=== PATIENT | male | born 1930 | race Caucasian/White ===

== ENCOUNTER 2017-08-05 21:18 | Inpatient (IN) | payer MEDICARE, BC ==
[2017-08-05 21:56] LABS: #Lymphocytes 0.3 thou/uL (1.20-3.40); #Monocytes 0.4 thou/uL (0.11-0.59); #Neutrophils 7.9 thou/uL (1.40-6.50); %Eosinophils 0.2 % (0.0-10.0); %Lymphocytes 2.9 % (21.0-51.0); %Monocytes 4.6 % (0.0-10.0); %Neutrophils 92.3 % (42.0-75.0); Hemoglobin 14.2 g/dL (14.0-18.0); Mean Corpuscular HGB CONC 33.9 g/dL (32.0-36.0); Mean Corpuscular Hemoglobin 33.4 pg (27.0-31.0); Mean Corpuscular Volume 98.5 fl (80.0-94.0); Mean Platelet Volume 6.5 fL (7.4-10.4); Platelet Count 161 thou/uL (130-400); RBC Distribution Width 13.1 % (11.5-14.5); Red Blood Cell (RBC) Count 4.26 mill/uL (4.70-6.10); White Blood Cell (WBC) Count 8.6 thou/uL (4.8-10.8)
[2017-08-05] MEDS ORDERED: Piperacillin/Tazobactam 4.5 GM VIAL ONE (22:15)
[2017-08-05 22:16] LABS: ALT (SGPT) 25 U/L (8-55); AST (SGOT) 30 U/L (5-34); Albumin 3.6 g/dL (3.4-4.8); Alkaline Phosphatase 66 U/L (40-150); Anion Gap 12 mmol/L (10-20); BUN (Urea Nitrogen) 19 mg/dL (8.4-25.7); Bilirubin, Total 0.6 mg/dL (0.2-1.2); Calc. Creatinine Clearance 0 mL/min (70-130); Calcium 8.6 mg/dL (7.8-10.44); Carbon Dioxide 27 mmol/L (23-31); Chloride 104 mmol/L (98-107); Estimated GFR-MDRD Greater than 90; Globulin 2.6 g/dL (2.4-3.5); Glucose 121 mg/dL (83-110); Potassium 3.6 mmol/L (3.5-5.1); Protein, Total 6.2 g/dL (5.8-8.1); Sodium 139 mmol/L (136-145)
[2017-08-05] MEDS ORDERED: Acetaminophen 500 MG TAB ONE (22:17)
[2017-08-05 22:24] LABS: Bilirubin Negative (Negative); Blood, Urine Negative (Negative); Clarity CLOUDY (Clear); Glucose, Urine (Dipstick) Negative (Negative); Leukocyte Trace (Negative); Nitrite Negative (Negative); Protein, Urine (Dipstick) Negative (Neg-Trace); Specific Gravity, Urine 1.018 (1.002-1.036); Urobilinogen 0.2 mg/dL (0.2-1.0)
[2017-08-05 22:26] LABS: Bacteria/HPF None Seen HPF (None Seen); Hyaline Casts/LPF 0-3 HYALINE CAST LPF (0-3 Hyaline); Squamous Epithelial None Seen HPF (0-3); WBC/HPF None Seen HPF (0-3)
[2017-08-05] MEDS ORDERED: Vancomycin HCl 1.25 GM in Sodium Chloride 0.9% 250 ML 250 ML IVPB SCH (22:30)
--- NOTE | 2017-08-05 22:55 | RAD ---
FRONTAL VIEW CHEST: CLINICAL HISTORY: Sepsis. COMPARISON: 11/09/2016 FINDINGS: Mild linear density remains at the right lower lung zone, decreased from the 11/09/2016 exam. This m ay relate to residual atelectasis or scar. There is no lobar consolidation otherwise demonstrated. The cardiac silhouette is stable. There is a stable high density nodule of the inferolateral left ch est, which may relate to granulomatous calcification. IMPRESSION: Linear density, right lower lung zone, as discussed above. There is interval improvement of this region when compared to comparison exam from 11/09/2016. POS: [facility]
--- NOTE | 2017-08-05 23:04 | RAD ---
ACUTE ABDOMINAL SERIES WITH FRONTAL VIEW CHEST AND TWO VIEW ABDOMEN: INDICATIONS: Fever. FINDINGS: The imaged lower lung zones reveal no lobar consolidation. No free air is seen beneath the hemidiaph ragms. The bowel gas pattern is nonspecific with scattered air-filled bowel of the abdomen and pelvi s. IMPRESSION: Nonspecific bowel gas pattern. POS: [facility]
--- NOTE | 2017-08-05 23:48 | CT ---
CT HEAD NONCONTRAST: CLINICAL HISTORY: Altered mental status. FINDINGS: There is age-related parenchymal atrophy with compensatory dilatation of the ventricular system. Mod erate chronic microvascular ischemic disease is present. No intracranial hemorrhage, mass effect, or midline shift. Minimal left mastoid fluid is present, and there is mild paranasal sinus mucosal thi ckening. IMPRESSION: No acute intracranial abnormalities. POS: [facility]
[2017-08-06] MEDS ORDERED: cefTRIAXone\\ROCEPHIN 2 GM VIAL ONE (01:03)
[2017-08-06] MEDS ORDERED: DOPamine 400 MG/D5W 250 ML 250 ML ONE (01:07)
[2017-08-06 01:39] LABS: Lactic Acid 2.2 mmol/L (0.5-2.2)
[2017-08-06] MEDS ORDERED: Ondansetron ODT 4 MG TAB ONE (01:59)
[2017-08-06] MEDS ORDERED: Ketorolac Tromethamine 30 MG/ML VIAL IVP PRN (03:23)
[2017-08-06] MEDS ORDERED: Ondansetron HCl/PF 4 MG/2 ML Vial IVP PRN ×2 (03:23→03:24)
[2017-08-06] MEDS ORDERED: Acetaminophen 650 MG Suppository PR PRN (03:23)
[2017-08-06] MEDS ORDERED: Ondansetron ODT 4 MG TAB SL PRN (03:24)
[2017-08-06] MEDS ORDERED: Acetaminophen 325 MG TAB PO PRN (03:24)
[2017-08-06] MEDS ORDERED: DOPamine 400 MG/D5W 250 ML 250 ML IVPB SCH ×2 (03:30)
[2017-08-06] MEDS ORDERED: Sodium Chloride 0.9% 1,000 ML IV SCH (03:30)
[2017-08-06 03:50] LABS: #Basophils 0.1 thou/uL (0.0-0.2); #Lymphocytes 0.2 thou/uL (1.20-3.40); #Monocytes 0.3 thou/uL (0.11-0.59); #Neutrophils 5.9 thou/uL (1.40-6.50); %Basophils 1.3 % (0.0-1.0); %Eosinophils 0.2 % (0.0-10.0); %Lymphocytes 2.7 % (21.0-51.0); %Monocytes 4.7 % (0.0-10.0); %Neutrophils 91.2 % (42.0-75.0); Hemoglobin 13.2 g/dL (14.0-18.0); Mean Corpuscular HGB CONC 33.6 g/dL (32.0-36.0); Mean Corpuscular Hemoglobin 33.3 pg (27.0-31.0); Mean Platelet Volume 6.1 fL (7.4-10.4); Platelet Count 141 thou/uL (130-400); Red Blood Cell (RBC) Count 3.97 mill/uL (4.70-6.10); White Blood Cell (WBC) Count 6.4 thou/uL (4.8-10.8)
[2017-08-06 03:57] VITALS: BMI 29.2
[2017-08-06 04:10] LABS: Anion Gap 9 mmol/L (10-20); BUN (Urea Nitrogen) 18 mg/dL (8.4-25.7); Calc. Creatinine Clearance 84 mL/min (70-130); Calcium 7.9 mg/dL (7.8-10.44); Carbon Dioxide 25 mmol/L (23-31); Chloride 108 mmol/L (98-107); Estimated GFR-MDRD Greater than 90; Glucose 122 mg/dL (83-110); Potassium 3.4 mmol/L (3.5-5.1); Sodium 139 mmol/L (136-145)
[2017-08-06] MEDS: Sodium Chloride 0.9% 1,000 ML IV SCH ×2 (04:49→18:26)
[2017-08-06] MEDS: metroNIDAZOLE 500 MG in Premix Bag 1 BAG IVPB SCH ×3 (04:50→20:18)
--- NOTE | 2017-08-06 06:12 | HP ---
REASON FOR ADMISSION: Sepsis, possible small-bowel obstruction. HISTORY OF PRESENT ILLNESS: The patient was brought to emergency room by his daughter as he is more lethargic. Around 10:00 a.m. yesterday, the patient was feeling cold and had developed chills. Around 5:00 p.m., he became more weak and lethargic. Around 7:30 to 8:00 p.m., patient was not himself. He was feeling hot and very lethargic and the daughter who works in the NICU here, who is also a nurse brought him to the emergency room. On arrival here, patient had a temperature of 102 in the ER. He was found to have had abdominal distention. The patient has felt nauseous and had one large episode of vomiting in the emergency room. The patient also was noticed to have progressive enlargement of his abdomen in the ER. He has had CT of the abdomen and pelvis done in the ER, the official results are pending at present. PAST MEDICAL AND SURGICAL HISTORY: History of Parkinson's disease, rheumatoid arthritis, benign prostatic hypertrophy, cholecystectomy and hernia repair. CURRENT MEDICATIONS: Lasix was increased from 40 to 80 mg for his lower extremity edema a week back. Avodart 0.5 mg p.o. daily, methotrexate 7.5 mg p.o. once weekly, Flomax extended release 0.4 mg daily, carbidopa/levodopa 1 tab 3 times daily that is 10/100 mg, Ultram p.r.n. for pain. ALLERGIES: Allergic to MORPHINE. PERSONAL HISTORY: Does not abuse alcohol or drugs. No history of smoking. FAMILY HISTORY: Mother in her 60s from unknown cause. Father in his 50s and was alcoholic and had CVA. CODE STATUS: FULL. This was discussed with patient's daughter, Ms. Sánchez at bedside. REVIEW OF SYSTEMS: Cannot be obtained as patient is not oriented at present. PHYSICAL EXAMINATION: GENERAL: The patient is an 86-year-old male who is currently not in any acute distress. VITAL SIGNS: Blood pressure on arrival was 107/54 later systolic blood pressures dropped down to 80s and was started on dopamine in the ER, pulse 106 per minute, respiratory rate 20 per minute, temperature 102 degrees rectal in the ER, saturating 98% on room air. NECK: Supple, no elevated JVD. HEENT: Eyes: Extraocular muscles intact. Pupils reacting to light. Oral cavity: Mucous membranes are dry. No exudates or congestion. CARDIOVASCULAR SYSTEM: S1, S2 heard. Regular rhythm. RESPIRATORY SYSTEM: Air entry 1+ bilateral. Scattered rhonchi plus bilateral. ABDOMEN: Mildly distended. No tenderness, rigidity or guarding. Bowel sounds are heard. EXTREMITIES: Mild peripheral edema, no calf tenderness. VASCULAR SYSTEM: Peripheral pulses 1+ bilateral, no ischemic ulcerations or gangrene. CENTRAL NERVOUS SYSTEM: No gross focal deficits noted. The patient is lethargic, but responds to simple questions. PSYCHIATRIC SYSTEM: Cannot be accurately assessed, but no obvious hallucinations or delusions at present. LABORATORY AND X-RAY FINDINGS: White count of 6.4, H and H 14 and 41, platelet count 161, MCV 98 with 92% neutrophils. Electrolytes are stable. BUN 19, creatinine 0.7, glucose 121. Liver enzymes are within normal limits. Albumin is 3.6. UA shows trace leukoesterase, with no wbc's or bacteria seen. Chest x- ray done shows mild linear density remains the right lower lung zone when compared to prior x-ray done in 11/2016. Acute abdominal series X-ray done shows nonspecific bowel gas pattern. CT brain shows no acute intracranial abnormalities. EKG done shows sinus rhythm at 107 beats per minute. There are nonspecific ST-T wave changes. CLINICAL IMPRESSION AND PLAN: The patient will be admitted to telemetry for sepsis, possible small-bowel obstruction and we will await the CT of the abdomen and pelvis official results. Blood and urine cultures have been obtained in the ER. The patient will be placed on cefepime and Flagyl for now. We will keep him n.p.o. until the CAT scan results are back. He will be gently hydrated with normal saline at 70 mL per hour. He has received 2.5 liters of IV fluids in the ER and we will continue his dopamine to keep map of 60. We will continue his Avodart and Flomax as before. Code status was discussed with patient's power of regulatory attorney, Ms. Sánchez, who is here at bedside , who is also a nurse here in the hospital. He is a FULL CODE for now. We will consult Dr. Cary in view of abdominal distention and nonspecific bowel gas pattern on the KUB x-ray obtained here. MARTHA
[2017-08-06] MEDS: Cefepime 2 GM in Sodium Chloride 0.9% 100 ML IVPB SCH ×2 (06:17→18:25)
[2017-08-06] MEDS: Dutasteride 0.5 MG CAP PO SCH (08:56)
[2017-08-06] MEDS: Tamsulosin HCl 0.4 MG CAP PO SCH (08:56)
[2017-08-06] MEDS: Enoxaparin Sodium 40 MG/0.4 ML SYRINGE SC SCH ×2 (08:58→14:19)
[2017-08-06] MEDS: Famotidine/PF 20 mg/2ml Vial SLOW IVP SCH ×2 (08:58→20:19)
--- NOTE | 2017-08-06 09:15 | CT ---
PRELIMINARY REPORT/[facility]/EMERGENTY AFTER-HOURS PROCEDURE CT Abdomen and Pelvis With Intravenous Contrast EXAM DATE/TIME: Exam ordered 08/06/2017 2:43 AM CLINICAL HISTORY: 86 years old, male; Pain; Abdominal pain; Generalized; Patient HX: Rinku presented to ed for progressiv nicky worsening AMS onset this morning. Daughter report patient vomited after breakfast and was complai nita of not feeling right. Daughter reports TECHNIQUE: Axial computed tomography images of the abdomen and pelvis with intravenous contrast. Coronal reforma tted images were created and reviewed. COMPARISON: No relevant prior studies available. FINDINGS: Lung bases: Indeterminate 4 mm pulmonary nodule in the base of the right lower lobe. Mild dependent a telectasis. ABDOMEN: Liver: Unremarkable. No mass. Gallbladder and bile ducts: Prior cholecystectomy. No ductal dilation. Pancreas: Unremarkable. No mass. No ductal dilation. Spleen: Unremarkable. No splenomegaly. Adrenals: Unremarkable. No mass. Kidneys and ureters: Unremarkable. No solid mass. No hydronephrosis. Stomach and bowel: Colonic diverticulosis. No diverticulitis. No bowel wall thickening or intestinal obstruction. Stomach is moderately distended with fluid. PELVIS: Appendix: Normal appendix. Bladder: Urinary bladder trabeculations. No wall thickening. Reproductive: Unremarkable as visualized. ABDOMEN and PELVIS: Intraperitoneal space: Unremarkable. No free air. No significant fluid collection. Bones/joints: No acute fracture. No dislocation. Soft tissues: Bilateral fat containing inguinal hernias. Vasculature: Unremarkable. No abdominal aortic aneurysm. Lymph nodes: Unremarkable. No enlarged lymph nodes. IMPRESSION: No acute findings. Thank you for allowing us to participate in the care of your patient. Dictated and Authenticated by: Pedro Luis Mckeon MD 08/06/2017 3:06 AM Central Time ([place] & [place]) FINAL REPORT CT ABDOMEN AND PELVIS WITH CONTRAST: Date: 08/06/17 Multiple axial tomograms obtained through abdomen and pelvis with IV enhancement. FINDINGS: Lung bases show no focal infiltrate. Liver, spleen, and pancreas are unremarkable. The stomach is dis tended and filled with ingested material. Adrenal glands unremarkable. Kidneys unremarkable. Urinary bladder is mildly distended and there are numerous bladder diverticula identified, the largest arising from the right bladder wall measuring 3. 7 cm. Prostate is not significantly enlarged. Bowel loops unremarkable. Aorta normal caliber. No mass, adenopathy, or free fluid identified. I am in agreement with the preliminary report issued by [facility]. POS: [facility]
--- NOTE | 2017-08-06 09:42 | PDOC.PN ---
- Subjective Encounter Start Date: 08/06/17 Encounter Start Time: 09:54 Currently denies abd. pain or nausea. Nausea is intermittent and worse with positioning that puts pressure on the abdomen. He reports that he has been having fairly regular BM's. Last was Saturday. No ill contacts. No travel and no change in diet. His daughter (a nurse) is at the bedside and she believes that his abdominal distention is more than it was in the ED. She reports that he did not actually have much emesis volume throughout this episode. - Objective Resuscitation Status: Resuscitation Status FULL:Full Resuscitation Vital Signs & Weight: Vital Signs (12 hours) Temp Pulse Resp BP Pulse Ox 08/06/17 04:30 98.4 F 82 18 115/59 L 98 08/06/17 03:23 97.9 F 96 18 99 08/06/17 03:05 97.9 F 96 18 128/61 100 Weight Weight 186 lb 4.8 oz I&O: 08/05/17 08/06/17 08/07/17 06:59 06:59 06:59 Intake Total 2800 Output Total 300 Balance 2500 Result Diagrams: 08/06/17 03:42 08/06/17 03:42 Phys Exam - Physical Examination Constitutional: NAD Respiratory: no wheezing, no rales, no rhonchi, clear to auscultation bilateral Cardiovascular: RRR, no significant murmur Gastrointestinal: non-tender Distended, hypertympanic. Normal BS. Musculoskeletal: no edema Pulses present, but diminshed. Neurological: non-focal Low frequency tremor of the mandible. Psychiatric: normal affect Dx/Plan (1) Abdominal distension Code(s): R14.0 - ABDOMINAL DISTENSION (GASEOUS) Status: Acute (2) Sepsis Code(s): A41.9 - SEPSIS, UNSPECIFIED ORGANISM Status: Acute (3) Altered mental status Code(s): R41.82 - ALTERED MENTAL STATUS, UNSPECIFIED Status: Acute (4) Rheumatoid arthritis Code(s): M06.9 - RHEUMATOID ARTHRITIS, UNSPECIFIED Status: Acute (5) Parkinson disease Code(s): G20 - PARKINSON'S DISEASE Status: Chronic Comment: on carbidopa/ levodopa (6) Hypokalemia Code(s): E87.6 - HYPOKALEMIA Status: Acute - Plan * Mental status is at baseline. Initial altered status secondary to acute illness. * Abdominal CT result still pending. Definitely reveals bowel distention and air-fluid levels. * Surgery Consult pending. * Continue with Cefepime and Flagyl given his one episode of fever and hypotension. * Hypotension is improved. Dopamine off for three hours. * Lack of abdominal pain and nausea presently, so defer NGT until seen by surg.
--- NOTE | 2017-08-06 10:02 | ULT ---
ULTRASOUND WITH DOPPLER DUPLEX VENOUS LOWER EXTREMITIES BILATERAL: HISTORY: 86-year-old male with bilateral lower extremity edema. TECHNIQUE: Color flow Doppler, spectral waveform analysis of pulsed Doppler, and mitchell-scale imaging with janeth daniel and augmentation, were used to evaluate the bilateral common femoral, femoral, popliteal, solar sales advisor ior tibial, and superficial femoral, veins; and the proximal portions of the profunda femoral and gre ater saphenous, veins. FINDINGS: There is normal compressibility, demonstration of blood flow by color Doppler and pulsed Doppler, and response to augmentation, in all interrogated veins. IMPRESSION: Negative. No deep vein thrombosis in the bilateral lower extremities. jn[] POS: [facility]
[2017-08-06] MEDS ORDERED: ISOVUE-370 76%-LOCM 1 ML ONE (10:58)
[2017-08-06] MEDS ORDERED: MD-Gastroview 120 ML BOT ONE (11:06)
--- NOTE | 2017-08-06 16:00 | CON ---
DATE OF CONSULTATION: 08/06/2017 REQUESTING PHYSICIAN: Kavita Gonzáles M.D. HISTORY OF PRESENT ILLNESS: This is an 86-year-old man who presented to emergency departme nt brought in by daughter who reported patient with progressive lethargy. The patient reported feeli ng some chills. He has had no bowel movement over the last 24 hours. Temperature upon arrival was 1 02 degrees Fahrenheit in the emergency department. The patient has had one bout of large volume emes is prior to arrival. CT scan of the abdomen and pelvis was obtained and I was asked to evaluate the patient for possible partial bowel obstruction. At the time of my evaluation, patient is awake and a lert, though he reports some fatigue. He denies any significant abdominal pain. He had passed some flatus hours before my arrival. PAST MEDICAL HISTORY: Significant for Parkinson's disease, benign prostatic hypertrophy, and rheumat oid arthritis. SURGICAL HISTORY: Pertinent for cholecystectomy and inguinal herniorrhaphy. I reviewed prehospital medications. ALLERGIES: MORPHINE. FAMILY HISTORY: Noncontributory for this patient's age. SOCIAL HISTORY: The patient denies any cigarette smoking, ethanol or illicit drug abuse. REVIEW OF SYSTEMS: Essentially unremarkable except for as stated in past medical history and chief c omplaint. PHYSICAL EXAMINATION: GENERAL: This reveals an 86-year-old man who is coherent and interactive and appears stated age. NEUROLOGIC: The patient is alert and oriented to person, time, and place. VITAL SIGNS: This morning includes blood pressure 129/60, pulse 90, respiratory rate 24, temperature 98.6 degrees Fahrenheit, and oxygen saturation is 98% on 3 liters by nasal cannula oxygen. HEENT: Reveals normocephalic and atraumatic. Pupils equal, round, and reactive to light and accommo dation. The patient has no jugular venous distention noted. HEART: Reveals regular rate and rhythm. No murmurs or gallops auscultated. LUNGS: Clear to auscultation bilaterally. Breathing regular and unlabored. ABDOMEN: Soft and moderately distended, but nontender to palpation. Liver and spleen nonpalpable be low costal margin. EXTREMITIES: Reveals 2+ radial and pedal pulses bilaterally. No ankle edema present. NEUROLOGICAL: Reveals no focal deficits present. LABORATORY DATA AND IMAGING DATA: Laboratory findings today includes CBC with 6,400 white blood cell s, hemoglobin and hematocrit 13.2 and 39.3 respectively, platelet count is 141,000. Metabolic profil e: Sodium 139, potassium is 3.4, chloride is 108, bicarbonate 25, BUN is 18, creatinine 0.73, and gl ucose 122. I have personally reviewed the CT scan of the abdomen and pelvis which revealed multiple mildly distended loops of small bowel with no air fluid levels. There is air in the colon and rectum . An enlarged urinary bladder is noted distended with urine. No pneumoperitoneum, pneumatosis intes tinalis or free fluid is noted. IMPRESSION: 1. Possible gastroenteritis versus partial small-bowel obstruction. 2. Acute hypokalemia. 3. Likely chronic urinary retention secondary to benign prostatic hypertrophy. PLAN: 1. Obtain small bowel follow through while patient is on bowel rest. 2. Correct abnormal electrolytes. 3. Obtain postvoid urinary bladder scan to determine if any urinary retention. Above findings and plan have been discussed with the patient and his daughter at bedside. No surgica l intervention is warranted at this time. Thank you again Dr. Gonzáles, for allowing me the opportunity to participate in the [facility].
--- NOTE | 2017-08-06 16:15 | RAD ---
SMALL BOWEL EXAMINATION: Gastrografin small bowel stud was performed. History: Abdominal pain. Assess for small bowel obstruction. FINDINGS: Project Landscape Architect film shows nongaseous distention of the stomach. There is nongaseous distention of the colon an d there is scattered small bowel gas without evidence of small bowel dilatation. Contrast in the blad pedro pablo from recent CT procedure. Gastrografin was infused via an NG tube and sequential images were obtained. A 1 hour 45 minute exam shows contrast in the stomach with no contrast in the small bowel. Contrast i s pooled within the gastric fundus and cardia region and does not pass through the stomach on this st udy. Patient changed positions and on the 2 hour 30 minute film, contrast is seen in the jejunum and mid i leum showing nonspecific distention without evidence of dilatation. On the 3 hour 30 minute film there is contrast seen throughout the small bowel and colon with contras t opacifying the left colon and rectum. IMPRESSION: 1. There is normal small bowel transit once contrast emptied from the stomach. There is no evidence o f small bowel obstruction. POS: [facility]
[2017-08-06] MEDS: Acetaminophen 325 MG TAB PO PRN (18:27)
[2017-08-07] MEDS: metroNIDAZOLE 500 MG in Premix Bag 1 BAG IVPB SCH ×2 (04:08→12:30)
[2017-08-07] MEDS: Cefepime 2 GM in Sodium Chloride 0.9% 100 ML IVPB SCH (05:07)
[2017-08-07 08:02] LABS: #Monocytes 0.6 thou/uL (0.11-0.59); #Neutrophils 4.5 thou/uL (1.40-6.50); %Basophils 0.1 % (0.0-1.0); %Eosinophils 0.3 % (0.0-10.0); %Lymphocytes 15.9 % (21.0-51.0); %Monocytes 9.7 % (0.0-10.0); Mean Corpuscular HGB CONC 32.8 g/dL (32.0-36.0); Mean Corpuscular Hemoglobin 33.1 pg (27.0-31.0); Mean Platelet Volume 6.8 fL (7.4-10.4); Platelet Count 129 thou/uL (130-400); RBC Distribution Width 13.3 % (11.5-14.5); Red Blood Cell (RBC) Count 3.64 mill/uL (4.70-6.10); White Blood Cell (WBC) Count 6.1 thou/uL (4.8-10.8)
[2017-08-07 08:21] LABS: ALT (SGPT) 28 U/L (8-55); AST (SGOT) 49 U/L (5-34); Albumin 3.1 g/dL (3.4-4.8); Alkaline Phosphatase 51 U/L (40-150); Anion Gap 6 mmol/L (10-20); BUN (Urea Nitrogen) 23 mg/dL (8.4-25.7); Bilirubin, Total 0.3 mg/dL (0.2-1.2); Calc. Creatinine Clearance 84 mL/min (70-130); Calcium 8.1 mg/dL (7.8-10.44); Carbon Dioxide 30 mmol/L (23-31); Chloride 114 mmol/L (98-107); Estimated GFR-MDRD Greater than 90; Globulin 2.2 g/dL (2.4-3.5); Glucose 94 mg/dL (83-110); Potassium 3.2 mmol/L (3.5-5.1); Protein, Total 5.3 g/dL (5.8-8.1); Sodium 147 mmol/L (136-145)
[2017-08-07] MEDS ORDERED: Acetaminophen 500 MG TAB PO PRN (08:39)
[2017-08-07] MEDS ORDERED: Potassium Chloride 40 MEQ in Premix Bag 1 BAG IVPB SCH (09:30)
--- NOTE | 2017-08-07 10:00 | PDOC.PN ---
- Subjective Encounter Start Date: 08/07/17 Encounter Start Time: 09:59 Feeling better. Ambulated well this morning. Had a shower. Tolerating clear liquids with NG out. Still has some abd. distention. Significant flatus, no belching. Requiring some oxygen this morning after activity. - Objective Resuscitation Status: Resuscitation Status FULL:Full Resuscitation Vital Signs & Weight: Vital Signs (12 hours) Temp Pulse Resp BP Pulse Ox 08/07/17 04:00 97.7 F 57 L 15 138/63 93 L 08/06/17 23:53 98.4 F 51 L 12 127/61 95 Weight Weight 186 lb 4.8 oz I&O: 08/06/17 08/07/17 08/08/17 06:59 06:59 06:59 Intake Total 2800 1740 Output Total 300 300 Balance 2500 1440 Result Diagrams: 08/07/17 07:21 08/07/17 07:21 Phys Exam - Physical Examination Constitutional: NAD Respiratory: no wheezing, no rales, no rhonchi, clear to auscultation bilateral Cardiovascular: RRR, no significant murmur Gastrointestinal: soft Distention with hypertympany. Hyperactive BS. Musculoskeletal: no edema Psychiatric: normal affect Dx/Plan (1) Abdominal distension Code(s): R14.0 - ABDOMINAL DISTENSION (GASEOUS) Status: Acute Plan: SB follow through was normal without evidence of obstruction. NG out. Tolerated clears. Diet advancing as tolerated. Continue abx for now. WBC normal. Afeb. (2) Sepsis Code(s): A41.9 - SEPSIS, UNSPECIFIED ORGANISM Status: Resolved (3) Altered mental status Code(s): R41.82 - ALTERED MENTAL STATUS, UNSPECIFIED Status: Resolved (4) Rheumatoid arthritis Code(s): M06.9 - RHEUMATOID ARTHRITIS, UNSPECIFIED Status: Chronic (5) Parkinson disease Code(s): G20 - PARKINSON'S DISEASE Status: Chronic Comment: on carbidopa/ levodopa (6) Hypokalemia Code(s): E87.6 - HYPOKALEMIA Status: Acute Plan: IV repletion. (7) Hypoxia Code(s): R09.02 - HYPOXEMIA Status: Acute Plan: Mild hypoxia. Had similar problem in the past that resolved spontaneously. Lung exam is unremarkable. Will obtain CXR. Concern for possible aspiration. - Plan * Above.
[2017-08-07] MEDS: Dutasteride 0.5 MG CAP PO SCH (10:13)
[2017-08-07] MEDS: Famotidine/PF 20 mg/2ml Vial SLOW IVP SCH ×2 (10:14→21:16)
[2017-08-07] MEDS: Tamsulosin HCl 0.4 MG CAP PO SCH (10:14)
[2017-08-07] MEDS: Enoxaparin Sodium 40 MG/0.4 ML SYRINGE SC SCH (10:14)
[2017-08-07] MEDS: Potassium Chloride 20 MEQ in Premix Bag 1 BAG IVPB SCH ×2 (11:03→14:05)
--- NOTE | 2017-08-07 12:32 | RAD ---
CHEST PA AND LATERAL: Date: 08/07/17 HISTORY: 86-year-old male with history of hypoxia. COMPARISON: 08/05/17. FINDINGS: Monitor leads overlie the chest. Bilateral small pleural effusions have developed since the prior acacia dy. There are stable increased linear and interstitial markings bilaterally. Monitor leads overlie th e chest. Heart size is stable. Atherosclerosis of the aorta. No new confluent pneumonia. IMPRESSION: Development of small bilateral pleural effusions with stable increased markings bilaterally and stabl e heart size. Atherosclerosis of aorta with ectasia. Consider short-term follow-up for clearing or st ability. POS: [facility]
--- NOTE | 2017-08-07 12:57 | PRG ---
DATE OF SERVICE: 08/07/2017 Mr. Mullen is an 86-year-old man who was admitted on 08/05/2017 following a bout of malaise and abdomi nal distention. I was asked to evaluate the patient to exclude small-bowel obstruction present. The patient underwent a small bowel follow through yesterday which showed normal transit time with no ev idence of obstructive process. Overnight, the patient has had multiple loose bowel movements. This morning he denies any abdominal pain. He is more alert at bedside. He is tolerating clear liquid diet. Urinary output has been belkis quate. PHYSICAL EXAMINATION: VITAL SIGNS: This morning includes blood pressure 138/63, pulse 57, respiratory rate is 15, maximum temperature in the last 24 hours is 99 degrees Fahrenheit, oxygen saturation 93% on 2 liters by nasal cannula oxygen. The patient is having productive cough. Sputum culture reveals many gram positive rods, few gram positive cocci in pairs and a few gram negat henrik rods. The patient is currently on antibiotic therapy. HEENT: Reveals normocephalic and atraumatic. Pupils equal, round, reactive to light and accommodati on. HEART: Reveals regular rate and rhythm, no murmurs or gallops auscultated. CHEST: Clear to auscultation bilaterally. Breathing regular and unlabored. ABDOMEN: Soft and obese, but nontender to palpation. Bowel sounds in all 4 quadrants. Normoactive. NEUROLOGIC: Reveals no focal deficits present. LABORATORY DATA: Today includes a CBC with 6100 white blood cells, hemoglobin and hematocrit stable at 12.0 and 36.8 respectively. Platelet count is also stable at 129,000. Metabolic profile: Sodium 147, potassium is 3.2, chloride is 114, BUN is 23, creatinine 0.73, glucose is 94. IMPRESSION: 1. Resolved abdominal distention. No clinical or radiographic evidence of acute small-bowel obstruc tion. 2. Acute bronchitis, currently on antibiotic therapy. There is no acute surgical indication for this patient at this time. General Surgery will sign off at this time and be available to reevaluate the patient on demand. We advised the patient be advanced to a general diet. Medical management as directed by Hospitalist Medicine.
[2017-08-07] MEDS ORDERED: Potassium Chloride 40 MEQ in Sodium Chloride 0.9% 250 ML 250 ML IVPB SCH (15:00)
--- NOTE | 2017-08-07 16:23 | PDOC.EVN ---
Event Note - Event Note Event Note: Patient has had some mild confusion this afternoon. Did not sleep much last night. Daughter reports he has had this in past when in rehab. Noted some facial redness this afternoon. Family concerned about possible reaction to meds. On evaluation, patient is awake and oriented to person and place. He is in no distress. Temp checked and it is normal. He does have some facial erythema at forehead and malar areas. Will discontinue the antibiotics. Wean oxygen as tolerated.
[2017-08-07] MEDS ORDERED: Potassium Chloride 20 MEQ TAB PO SCH (16:30)
[2017-08-07] MEDS: Sodium Chloride 0.9% 1,000 ML IV SCH (22:06)
[2017-08-08 05:13] LABS: #Lymphocytes 1.3 thou/uL (1.20-3.40); #Monocytes 0.8 thou/uL (0.11-0.59); #Neutrophils 6.9 thou/uL (1.40-6.50); %Eosinophils 0.2 % (0.0-10.0); %Lymphocytes 14.8 % (21.0-51.0); %Monocytes 8.7 % (0.0-10.0); %Neutrophils 76.3 % (42.0-75.0); Hemoglobin 13.2 g/dL (14.0-18.0); Mean Corpuscular HGB CONC 33.2 g/dL (32.0-36.0); Mean Corpuscular Hemoglobin 33.1 pg (27.0-31.0); Mean Corpuscular Volume 99.7 fl (80.0-94.0); Mean Platelet Volume 6.7 fL (7.4-10.4); Platelet Count 123 thou/uL (130-400); RBC Distribution Width 13.3 % (11.5-14.5); Red Blood Cell (RBC) Count 3.97 mill/uL (4.70-6.10)
[2017-08-08] MEDS ORDERED: Furosemide 40 MG/4 ML VIAL ONE (05:22)
[2017-08-08] MEDS ORDERED: Furosemide 20 MG/2 ML VIAL SLOW IVP SCH ×2 (05:30→12:00)
[2017-08-08 05:34] LABS: Anion Gap 12 mmol/L (10-20); BUN (Urea Nitrogen) 19 mg/dL (8.4-25.7); Calc. Creatinine Clearance 87 mL/min (70-130); Calcium 8.4 mg/dL (7.8-10.44); Carbon Dioxide 23 mmol/L (23-31); Chloride 112 mmol/L (98-107); Estimated GFR-MDRD Greater than 90; Glucose 98 mg/dL (83-110); Potassium 3.4 mmol/L (3.5-5.1); Sodium 144 mmol/L (136-145)
[2017-08-08] MEDS ORDERED: Haloperidol Lactate 5 MG/ML VIAL ONE (05:51)
[2017-08-08] MEDS ORDERED: Haloperidol Lactate 5 MG/ML VIAL IM SCH (06:00)
[2017-08-08] MEDS ORDERED: Albuterol Sulfate 1.25 MG/3 ML NEB NEB PRN (07:59)
--- NOTE | 2017-08-08 08:07 | PDOC.PN ---
- Subjective Encounter Start Date: 08/08/17 Encounter Start Time: 08:04 Patient had some difficulty overnight. He had some confusion yesterday in the afternoon. That persisted throughout the night. He had some increased respiratory issues this morning (apparently around 5 am). Lasix and Haldol were ordered. He documented sats were actually good on 0.5 lpm NC. Presently he is still slightly confused and nursing reports he has been trying to get out of bed. He reports that his breathing in "better". - Objective Resuscitation Status: Resuscitation Status FULL:Full Resuscitation Vital Signs & Weight: Vital Signs (12 hours) Temp Pulse Resp BP Pulse Ox 08/08/17 03:31 98.8 F 80 20 164/84 H 97 08/07/17 23:54 96.8 F L 68 17 159/70 H 96 08/07/17 21:16 96.1 F L 57 L 16 153/70 H 93 L 08/07/17 21:15 96.8 F L 68 17 96 Weight Weight 182 lb 14.4 oz I&O: 08/07/17 08/08/17 08/09/17 06:59 06:59 06:59 Intake Total 1740 850 Output Total 300 402 Balance 1440 448 Result Diagrams: 08/08/17 04:39 08/08/17 04:39 Phys Exam - Physical Examination Constitutional: NAD Mild generalized wheezing, slightly more in BLL's. Cardiovascular: RRR, no significant murmur Gastrointestinal: soft, non-tender [place] distention, but improved. Musculoskeletal: no edema Confused. Not agitated at the moment. Non-focal. Psychiatric: normal affect Deviation from normal: No erythema of the face. Dx/Plan (1) Abdominal distension Code(s): R14.0 - ABDOMINAL DISTENSION (GASEOUS) Status: Acute Plan: Improved. Had negative SBFT study. NG was discontinued. Doing relatively well from that perspective. Likely viral gastroenteritis. Off abx for this. (2) Sepsis Code(s): A41.9 - SEPSIS, UNSPECIFIED ORGANISM Status: Resolved (3) Altered mental status Code(s): R41.82 - ALTERED MENTAL STATUS, UNSPECIFIED Status: Resolved Plan: Suspect this is benign delirium of an elderly patient who presented ill and who has a history of similar. He did receive a dose of Haldol this morning. Will have a sitter for him. His daughter has been staying with him, but she has been sleep deprived and finally agreed to go home and get some rest. He does not appear otherwise toxic with the exception of the lung exam, but his sats have been reasonable. Will continue to monitor. (4) Hypoxia Code(s): R09.02 - HYPOXEMIA Status: Acute Plan: Has new wheezing this morning. Possible fluid overload. Presented hypotensive and did receive fluids. Lasix was ordered this morning. CXR, nebs, oxygen. Some history of coughing with food, meds. Daughter reports this has been previously evaluated and there were no major findings. Nurses report that he takes meds with apple sauce without difficulty. Will have ST see him. (5) Rheumatoid arthritis Code(s): M06.9 - RHEUMATOID ARTHRITIS, UNSPECIFIED Status: Chronic (6) Parkinson disease Code(s): G20 - PARKINSON'S DISEASE Status: Chronic Comment: on carbidopa/ levodopa (7) Hypokalemia Code(s): E87.6 - HYPOKALEMIA Status: Acute - Plan * As above. * Continue to address respiratory issues and delirium.
[2017-08-08] MEDS: Enoxaparin Sodium 40 MG/0.4 ML SYRINGE SC SCH (09:06)
[2017-08-08] MEDS: cefTRIAXone\\ROCEPHIN 1 GM in Sodium Chloride 0.9% 100 ML IVPB SCH (10:15)
[2017-08-08] MEDS: Dutasteride 0.5 MG CAP PO SCH (10:52)
[2017-08-08] MEDS: Famotidine 20 MG TAB PO SCH ×2 (10:53→22:05)
[2017-08-08] MEDS: Tamsulosin HCl 0.4 MG CAP PO SCH (10:54)
--- NOTE | 2017-08-08 11:23 | RAD ---
AP VIEW CHEST: Date: 08/08/17 HISTORY: Wheezing. FINDINGS/IMPRESSION: Comparison made to previous exam from 08/05/17. AP view of chest demonstrates EKG leads seen over the chest. Pulmonary vascular congestion is seen. A small left-sided pleural effusion is seen. POS: [facility]
--- NOTE | 2017-08-08 11:53 | PDOC.EVN ---
Event Note - Event Note Event Note: CXR shows some pulmonary edema. Will give additional dose of Lasix and oral potassium. He refused po meds this morning. If he will not take potassium, will try IV, but this bothered him yesterday. Otherwise, will follow potassium levels.
[2017-08-08] MEDS ORDERED: Potassium Chloride 20 MEQ TAB PO SCH (12:00)
[2017-08-08] MEDS ORDERED: Potassium Chloride 40 MEQ in Premix Bag 1 BAG IVPB SCH (13:30)
[2017-08-08] MEDS: Potassium Chloride 20 MEQ in Premix Bag 1 BAG IVPB SCH ×2 (14:28→16:46)
[2017-08-08] MEDS: Acetaminophen 325 MG TAB PO PRN (15:39)
[2017-08-08] MEDS: Carbidopa/Levodopa 10-100 mg Tablet PO SCH ×2 (15:40→22:05)
[2017-08-09 05:23] LABS: #Lymphocytes 1.2 thou/uL (1.20-3.40); #Monocytes 0.8 thou/uL (0.11-0.59); #Neutrophils 5.2 thou/uL (1.40-6.50); %Eosinophils 0.1 % (0.0-10.0); %Lymphocytes 16.7 % (21.0-51.0); %Monocytes 11.3 % (0.0-10.0); Hemoglobin 12.1 g/dL (14.0-18.0); Mean Corpuscular HGB CONC 33.1 g/dL (32.0-36.0); Mean Corpuscular Hemoglobin 32.9 pg (27.0-31.0); Mean Corpuscular Volume 99.4 fl (80.0-94.0); Platelet Count 129 thou/uL (130-400); RBC Distribution Width 13.2 % (11.5-14.5); Red Blood Cell (RBC) Count 3.69 mill/uL (4.70-6.10); White Blood Cell (WBC) Count 7.3 thou/uL (4.8-10.8)
[2017-08-09 05:33] LABS: Anion Gap 9 mmol/L (10-20); BUN (Urea Nitrogen) 20 mg/dL (8.4-25.7); Calc. Creatinine Clearance 86 mL/min (70-130); Carbon Dioxide 28 mmol/L (23-31); Chloride 111 mmol/L (98-107); Estimated GFR-MDRD Greater than 90; Glucose 100 mg/dL (83-110); Potassium 3.3 mmol/L (3.5-5.1); Sodium 145 mmol/L (136-145)
[2017-08-09] MEDS: Tamsulosin HCl 0.4 MG CAP PO SCH (09:05)
[2017-08-09] MEDS: Famotidine 20 MG TAB PO SCH ×2 (09:05→20:53)
[2017-08-09] MEDS: Dutasteride 0.5 MG CAP PO SCH (09:05)
[2017-08-09] MEDS: Carbidopa/Levodopa 10-100 mg Tablet PO SCH ×3 (09:05→20:53)
[2017-08-09] MEDS: Enoxaparin Sodium 40 MG/0.4 ML SYRINGE SC SCH (09:08)
[2017-08-09] MEDS: cefTRIAXone\\ROCEPHIN 1 GM in Sodium Chloride 0.9% 100 ML IVPB SCH (09:15)
--- NOTE | 2017-08-09 10:54 | DIS ---
DATE OF ADMISSION: 08/06/2017 DATE OF DISCHARGE: 08/09/2017 DISCHARGE DIAGNOSES: 1. Abdominal distention. 2. Sepsis with hypotension, likely viral. 3. Parkinson's disease. 4. Hypoxia. 5. Confusion. 6. Hypokalemia. 7. Rheumatoid arthritis. HOSPITAL COURSE: This patient is an 86-year-old male who presented with some abdominal distention and discomfort with some associated nausea and vomiting which was not high volume. The patient was initially evaluated in the emergency department where he was found to be hypotensive. He had fluid resuscitation, started on a dopamine drip. He was subsequently admitted to the floor with broad spectrum antibacterial coverage. HOSPITAL COURSE: The patient was able to wean off the dopamine fairly quickly. His blood pressure improved. He was seen by General Surgery, Dr. Cary. He placed an NG tube and ordered and a small bowel follow through. The patient's small bowel study was normal. There was no evidence of obstruction or ileus. Subsequently, the NG tube was discontinued. From that perspective, the patient did well. However, he did have 1 additional episode of fever which he had also reported at home. He also had some borderline compromised respiratory status with O2 saturations that were low requiring some oxygen and at that time he also developed some altered mental status and some agitation. The patient then received a dose of Lasix and Haldol. His chest x-ray did show some pulmonary edema and he did receive a second dose of Lasix. In talking to his daughter this was a similar episode that had happened when he had been n.p.o. in rehab and it appeared that the culprit was the lack of his Sinemet. His Sinemet was immediately restarted and the patient had remarkable improvement in his confusion. He was then able to sleep through the night which he had not done previously. His breathing improved. His lung exam normalized and he was able to eat a regular diet. The patient had no further fevers at that time. I discussed with the patient's daughter and she felt strongly that he would do well at home, especially in light of the fact there was no evidence of other ongoing infection. All blood cultures and urine cultures, and sputum cultures remained negative throughout. Of note, the patient did have a swallowing study performed; however, it was done when he was having some of the altered mental status. At that time, he was having some difficulties; however, after resuming his Sinemet that seemed to dramatically improve. Exam: General: Awake and alert. NAD Heart: RRR, no M Lungs: CTAB, no wheezes Abdomen: Soft, NT,ND Ext: No edema DISPOSITION: The patient will be discharged to home. DISCHARGE MEDICATIONS: He will continue with his usual home medications including ranitidine 150 mg b.i.d., Lasix 40 mg p.o. daily, Avodart 0.5 mg p.o. daily, carbidopa/levodopa 10/100 one p.o. t.i.d., tamsulosin 0.4 mg every day, methotrexate 2.5 mg p.o. q next week. He will be on no new medications. DIET: He is to have a regular diet. ACTIVITY: His activity level is as tolerated. FOLLOWUP: He should follow up with his PCP within 1 week. He can return to the emergency department should he have any problems prior to that time. MARTHA
--- NOTE | 2017-08-09 11:09 | PQF ---
CLINICAL DOCUMENTATION IMPROVEMENT CLARIFICATION FORM: ICD-10 Updated PLEASE DO AN ADDENDUM TO THE PROGRESS NOTE WITH ANY DOCUMENTATION UPDATES OR ADDITIONS AND CARRY THROUGH TO DC SUMMARY. THANK YOU. DATE: 08/09/17 ATTN: Dr. Love Please exercise your independent, professional judgment in responding to the clarification form. Clinical indicators are provided on the bottom of this form for your review Please check appropriate box(s): [ X] Acute pulmonary edema [ ] Chronic pulmonary edema [ ] Other diagnosis [ ] Unable to determine In addition, please specify: Present on Admission (POA): [ ] Yes [ x] No [ ] Unable to determine For continuity of documentation, please document condition throughout progress notes and discharge summary. Thank You. CLINICAL INDICATORS - SIGNS / SYMPTOMS / LABS PN 08/08: HE HAD SOME INCREASED RESPIRATORY ISSUES THIS MORNING. HYPOXIA. ACUTE. HAS NEW WHEEZING THIS MORNING. POSSIBLE FLUID OVERLOAD. EVENT NOTE 08/08; CXR SHOWS SOME PULMONARY EDEMA. WILL GIVE ADDITIONAL DOSE OF LASIX & ORAL POTASSIUM. RISKS: H&P: ADMITTED TO TELEMETRY FOR SEPSIS. HE WILL BE GENTLY HYDRATED WITH NS AT 70 ML/ HR. HE HAS RECEIVED 2.5 LITERS OF IV FLUIDS IN THE ER TREATMENT: CPOE 08/08 @ 0522: LASIX 20 MG SLOW IVP NOW CPOE 08/08 @ 1305: LASIX 20 MG SLOW IVP NOW (This form is maintained as a part of the permanent medical record) 2014 [employer]. All Rights Reserved Rebecca Roldan RN, BSN [email or web address] Office: [phone] [facility]
[2017-08-09] MEDS ORDERED: Potassium Chloride 20 MEQ TAB PO SCH (11:30)
[2017-08-09] MEDS ORDERED: Metoprolol Tartrate 25 MG TAB PO SCH (12:00)
--- NOTE | 2017-08-09 12:03 | PDOC.EVN ---
Event Note - Event Note Event Note: Patient was discharged, but before he left he converted to a-fib with tachycardia. He was asymptomatic and his BP was stable. I spoke with his daughter about the situation. Her mother also has a-fib and she understands it well. She understands the risk associated with it. We all discussed the situation and they do not want to pursue anticoagulation. They would still very much like to go home today. We agreed to give it a little time and see what happened. He has remained unchanged. He remains completely asymptomatic. I have ordered potassium as he is slightly low. That is just now being given. We also agreed to try a low dose oral beta jonathan to improve his rate control. We will give that a little time. If converts to sinus or if he can achieve adequate rate control, we will still consider sending him home as that is likely the best thing for him in light of the confusion he experienced here. Additional time 37 min.
[2017-08-09] MEDS ORDERED: Diltiazem 125 MG in Sodium Chloride 0.9% 100 ML IVPB SCH (15:30)
--- NOTE | 2017-08-09 16:00 | CON ---
DATE OF CONSULTATION: 08/09/2017. REASON FOR CONSULTATION: Atrial fibrillation with rapid ventricular response. HISTORY OF PRESENT ILLNESS: Mr. Mullen is a pleasant 86-year-old white gentleman who comes to the [facility] for abdominal distention. He was initially evaluated in the ER and was found to have a fever, abdominal distention, nausea and vomiting. He thought he was a little volume down as he was also hyp otensive. He was placed on IV fluids. Eventually, his symptoms improved, thought to be related to s ome viral illness. He had a little bit of fluid in his legs eventually, so he was given some Lasix t o diurese and he had a little hypokalemia. He was ready for discharge, doing much better and on the day of discharge, he went into atrial fibrillation RVR, heart rate in the 150s. Cardiology is being consulted for this. PAST MEDICAL HISTORY: 1. Parkinson's disease. 2. Rheumatoid arthritis. 3. Benign prostatic hypertrophy. 4. Cholecystectomy. 5. Hernia repair. OUTPATIENT MEDICATIONS: Include, 1. Lasix 80 mg. 2. Avodart. 3. Methotrexate. 4. Flomax. 5. Carbidopa/levodopa. 6. Ultram p.r.n. 7. Potassium with Lasix. ALLERGIES: MORPHINE. SOCIAL HISTORY: No alcohol, tobacco or drugs. FAMILY HISTORY: Noncontributory. REVIEW OF SYSTEMS: A 12-point review of systems was done and is all negative unless stated in the hi story of present illness. PHYSICAL EXAMINATION: VITAL SIGNS: Temperature 97.9, pulse 124, respiration rate 18, satting 95% on room air, blood pressu re 108/70. GENERAL: Awake, alert, oriented x3, in no distress. HEENT: Normocephalic, atraumatic. NECK: Supple. LUNGS: Clear. CARDIOVASCULAR: Irregularly irregular. Heart rate in the 130s. ABDOMEN: Soft. Positive bowel sounds. EXTREMITIES: 2+ edema. SKIN: Warm and dry. LABORATORY WORK: Reviewed. Sodium of 145, potassium of 3.3 and has been 3.4, 3.2, 3.4, 3.3 in the l ast 3-4 days. Chloride of 111, carbon dioxide of 28, anion gap of 9, BUN of 20, creatinine 0.7, GFR greater than 90, glucose of 100, calcium of 8. Troponin was 0.1 and BNP of 837. UA was unremarkable. CBC was unremarkable. Microbiology has been blood cultures with no growth. Urine culture with no growth. EKG was reviewed, AFib, RVR. ASSESSMENT AND PLAN: 1. Atrial fibrillation with rapid ventricular response, new onset: Daughter is at bedside and she i s a NICU nurse here in the hospital. She is very well aware of what atrial fibrillation is as her mo ther also has atrial fibrillation and has been dealing with it for the last 16 years. She tells me t hat Mr. Mullen is a very high fall risk and she does not think he is a good candidate for full anticoa gulation. I think this is actually very reasonable. With his history of advanced age and fall risk, he would probably just require to be on an aspirin for stroke prophylaxis. Because of this, we will plan to do rate control strategy. I will start diltiazem as a drip at 5 mg an hour with up titratio n depending on blood pressure and heart rates. If we were able to slow him down some, we will switch him to p.o. in the morning and he may be discharged home on the equivalent p.o. dose of the IV drip. Otherwise, replace potassium as this is most likely the cause of his atrial fibrillation as well. 2. We will get an echocardiogram to assess LV function and valvular structures. Thank you for letting us participate in the care of your patient. We will follow.
[2017-08-09 21:25] LABS: Bilirubin Negative (Negative); Blood, Urine Negative (Negative); Clarity CLEAR (Clear); Glucose, Urine (Dipstick) Negative (Negative); Leukocyte Negative (Negative); Nitrite Negative (Negative); Protein, Urine (Dipstick) 30 mg/dL (Neg-Trace); Urobilinogen 0.2 mg/dL (0.2-1.0); pH, Urine 6.5 (5.0-9.0)
[2017-08-09 21:27] LABS: Bacteria/HPF None Seen HPF (None Seen); Hyaline Casts/LPF 0-3 HYALINE CAST LPF (0-3 Hyaline); Pathc Cast-AUWi Flag 0.14 (0-2.49); Squamous Epithelial 0-3 HPF (0-3); WBC/HPF 0-3 HPF (0-3)
--- NOTE | 2017-08-09 21:45 | PDOC.EVN ---
Event Note - Event Note Event Note: Patient converted back to sinus rhythm. Plan to observe overnight and obtain echo tomorrow.
[2017-08-10 05:31] LABS: Anion Gap 6 mmol/L (10-20); BUN (Urea Nitrogen) 18 mg/dL (8.4-25.7); Calc. Creatinine Clearance 95 mL/min (70-130); Calcium 8.2 mg/dL (7.8-10.44); Carbon Dioxide 28 mmol/L (23-31); Chloride 112 mmol/L (98-107); Estimated GFR-MDRD Greater than 90; Glucose 96 mg/dL (83-110); Potassium 3.4 mmol/L (3.5-5.1); Sodium 143 mmol/L (136-145)
[2017-08-10] MEDS: Tamsulosin HCl 0.4 MG CAP PO SCH (09:20)
[2017-08-10] MEDS: Carbidopa/Levodopa 10-100 mg Tablet PO SCH ×2 (09:20→14:44)
[2017-08-10] MEDS: Famotidine 20 MG TAB PO SCH (09:20)
[2017-08-10] MEDS: Dutasteride 0.5 MG CAP PO SCH (09:21)
[2017-08-10] MEDS: Enoxaparin Sodium 40 MG/0.4 ML SYRINGE SC SCH (09:21)
[2017-08-10] MEDS: cefTRIAXone\\ROCEPHIN 1 GM in Sodium Chloride 0.9% 100 ML IVPB SCH (11:34)
[2017-08-10] MEDS ORDERED: hydrALAZINE 20 MG/ML VIAL SLOW IVP PRN (11:41)
--- NOTE | 2017-08-10 12:51 | PDOC.PN ---
- Subjective Encounter Start Date: 08/10/17 Encounter Start Time: 11:20 Patient seen and examined for Afib/Abd pain. No new complaints. No overnight events. Remained in SR. - Objective Resuscitation Status: Resuscitation Status FULL:Full Resuscitation MAR Reviewed: Yes Vital Signs & Weight: Vital Signs (12 hours) Temp Pulse Resp BP BP Pulse Ox 08/10/17 11:42 98.1 F 55 L 22 H 166/76 H 96 08/10/17 08:05 97.7 F 65 22 H 96 08/10/17 08:00 97.7 F 65 22 H 170/83 H 96 08/10/17 04:00 97.6 F 61 16 148/68 H 98 Weight Weight 173 lb 6.4 oz I&O: 08/09/17 08/10/17 08/11/17 06:59 06:59 06:59 Intake Total 980 1275 Output Total 750 300 Balance 230 975 Result Diagrams: 08/09/17 04:43 08/10/17 04:30 EKG Reviewed by me: Yes (Tele - SR) Phys Exam - Physical Examination Constitutional: NAD Respiratory: no wheezing, no rhonchi Cardiovascular: RRR, no rub Gastrointestinal: soft, non-tender, positive bowel sounds Musculoskeletal: no edema Neurological: moves all 4 limbs Dx/Plan (1) Atrial fibrillation with RVR Code(s): I48.91 - UNSPECIFIED ATRIAL FIBRILLATION Status: Acute Comment: in SR, Echo pending (2) Elevated troponin Code(s): R74.8 - ABNORMAL LEVELS OF OTHER SERUM ENZYMES Status: Acute Comment: due to demand ischemia (3) Hypokalemia Code(s): E87.6 - HYPOKALEMIA Status: Acute Comment: Will start oral replacement (4) Hypotension Status: Acute Comment: requiring Dopamine - resolved. (5) Parkinson disease Code(s): G20 - PARKINSON'S DISEASE Status: Chronic Comment: on carbidopa/ levodopa (6) SBO (small bowel obstruction) Code(s): K56.609 - UNSP INTESTNL OBST, UNSP TO PARTIAL VERSUS COMPLETE OBST Status: Suspected Comment: resolved - Plan DVT proph w/SCDs Await Echo -: Replace Potassium -: AM labs -: Cont PO Cardizem if BP ok -: DC Ceftriaxone Review of Systems - Review of Systems Cardiovascular: negative: chest pain, palpitations, orthopnea, paroxysmal nocturnal dyspnea, edema, light headedness, other Gastrointestinal: negative: Nausea, Vomiting, Abdominal Pain, Diarrhea, Constipation, Melena, Hematochezia, Other - Medications/Allergies Allergies/Adverse Reactions: Allergies Allergy/AdvReac Type Severity Reaction Status Date / Time morphine Allergy Rash Verified 08/06/17 05:20 Medications: Current Medications Acetaminophen (Tylenol) 650 mg PA Q4H PRN PRN Reason: Headache/Fever or Pain Acetaminophen (Tylenol) 1,000 mg PO Q6H PRN PRN Reason: Fever/Mild Pain Albuterol Sulfate (Albuterol Sulfate) 1.25 mg NEB [id number] PRN PRN Reason: Wheezing Aspirin (Aspirin Chewable) 81 mg PO DAILY [facility] Last Admin: 08/10/17 09:20 Dose: 81 mg Carbidopa/Levodopa (Sinemet 10/100) 1 tab PO TID [facility] Last Admin: 08/10/17 09:20 Dose: 1 tab Diltiazem HCl (Cardizem) 30 mg PO BID [facility] Last Admin: 08/10/17 11:43 Dose: Not Given Dutasteride (Avodart) 0.5 mg PO DAILY [facility] Last Admin: 08/10/17 09:21 Dose: 0.5 mg Enoxaparin Sodium (Lovenox) 40 mg SC 0900 [facility] Last Admin: 08/10/17 09:21 Dose: 40 mg Famotidine (Pepcid) 20 mg PO BID [facility] Last Admin: 08/10/17 09:20 Dose: 20 mg Hydralazine HCl (Apresoline) 5 mg SLOW IVP Q4H PRN PRN Reason: SBP Greater Than 180 Ondansetron HCl (Zofran) 4 mg IVP Q6H PRN PRN Reason: Nausea/Vomiting Last Admin: 08/06/17 06:41 Dose: 4 mg Potassium Chloride (Klor-Con 10) 20 meq PO BID-[facility] Sodium Chloride (Flush - Normal Saline) 10 ml IVF Q12HR [facility] Last Admin: 08/10/17 09:22 Dose: 10 ml Sodium Chloride (Flush - Normal Saline) 10 ml IVF PRN PRN PRN Reason: Saline Flush Tamsulosin HCl (Flomax) 0.4 mg PO DAILY [facility] Last Admin: 08/10/17 09:20 Dose: 0.4 mg
[2017-08-10] MEDS ORDERED: Simethicone Chewable 80 MG TAB PO PRN (12:52)
[2017-08-10 15:27] VITALS: BP 164/80; TEMP 97.5
[2017-08-10] MEDS ORDERED: Potassium Chloride 10 MEQ TAB PO SCH (17:00)
--- NOTE | 2017-08-10 19:51 | PDOC.CTH ---
Cardiology Progress Note - Subjective He converted to sinus and has remained in sinus since. He has no new complaints. - Objective Vital Signs Temp Pulse Resp BP BP Pulse Ox 08/10/17 15:25 97.5 F L 53 L 19 164/80 H 98 08/10/17 11:42 98.1 F 55 L 22 H 166/76 H 96 08/10/17 08:05 97.7 F 65 22 H 96 08/10/17 08:00 97.7 F 65 22 H 170/83 H 96 Weight 173 lb 6.4 oz 08/09/17 08/10/17 08/11/17 06:59 06:59 06:59 Intake Total 980 1275 Output Total 750 300 Balance 230 975 - Physical Examination General/Neuro: alert & oriented x3, NAD Neck: no JVD present Lungs: CTA, unlabored respirations Heart: RRR Abdomen: NT/ND Extremities: other: (no edmea) - Telemetry Telemetry Rhythm: NSR - Labs Result Diagrams: 08/09/17 04:43 08/10/17 04:30 Troponin/CKMB Troponin I 0.110 ng/mL (< 0.028) H 08/09/17 13:43 - Assessment/Plan 1. Afib RVR, paroxysmal, now in sinus 2. Normal LV function PLAN: - Aspirin for stroke prophylaxis due to fall risk. - No BB or CCB due to low blood pressure. Likely afib was due to hypokalemia. - July discharge home - Follow up in 2 months in the office.
--- NOTE | 2017-08-11 09:47 | DIS ---
DATE OF DISCHARGE: 08/10/2017 DISCHARGE DISPOSITION: Home. DISCHARGE MEDICATIONS: Aspirin 81 mg daily. All other home medications were resumed. HOSPITAL COURSE: Please refer to the discharge summary dictated by, Dr. Love on 08/09/2017 for de tails about this hospitalization. The patient developed atrial fibrillation with rapid ventricular response yesterday requiring overnig ht monitoring. Cardizem drip was ordered; however, patient converted to sinus rhythm prior to initia tion of the drip. Echocardiogram was done that showed ejection fraction 50%-55% with grade I/III kate stolic dysfunction. Right ventricular systolic pressure was 45 mm with moderate mitral regurgitation and mild aortic valve stenosis. The patient was evaluated by Cardiology, Dr. Salas. Dr. Salas re commended aspirin for stroke prophylaxis due to fall risk. No beta blockers or calcium channel block ers due to low blood pressure. A repeat base met after 1 week is recommended. Primary care physicia n is advised to follow. FINAL DIAGNOSES: Please refer to the discharge summary from yesterday. In addition, 1. Atrial fibrillation with rapid ventricular response. 2. Elevated troponins secondary to demand ischemia. 3. Hypokalemia, replaced. A repeat basic metabolic next week is recommended. 4. Parkinson disease. 5. Plan of care was discussed with the daughter in detail. She stated understanding.
== END 2017-08-10 15:59 | disposition home or self-care (01) | DRG 871 ==
LOC: ERS 21:18 → 2NO 08-06 01:11
PROVIDERS: ADMIT Internal Medicine; ATTEND Internal Medicine
DX: A41.9 Sepsis, unspecified organism (principal); J81.0 Acute pulmonary edema; I24.8 Other forms of acute ischemic heart disease; I48.91 Unspecified atrial fibrillation; E87.6 Hypokalemia; G20 Parkinson's disease; Z79.82 Long term (current) use of aspirin; M19.90 Unspecified osteoarthritis, unspecified site; N40.0 Benign prostatic hyperplasia without lower urinary tract symptoms; R14.0 Abdominal distension (gaseous); B34.9 Viral infection, unspecified; R09.02 Hypoxemia; R41.82 Altered mental status, unspecified; J20.9 Acute bronchitis, unspecified; R33.9 Retention of urine, unspecified
CPT/HCPCS: 36415; 51701; 70450; 71045; 71046; 74022; 74177; 74250; 80048; 80053; 81001; 81003; 81015; 82533; 83605; 83735; 83880; 84484; 85025; 87040; 87070; 87086; 87205; 93005; 93010; 93306; 93970; 96361; 96365; 96366; 96367; A4216; G8978-GP-CM; G8979-GP-CK; G8987-GO-CL; G8988-GO-CJ; G8996-GN-CM; G8997-GN-CK; J0692; J0696; J1265; J1630; J1650; J1940; J2405; J2543; J3370; J3480; J7050; Q0162; S0028

== ENCOUNTER 2017-08-15 11:37 | Emergency (ER) | payer MEDICARE, BC ==
[2017-08-15 12:15] LABS: #Basophils 0.1 thou/uL (0.0-0.2); #Eosinphils 0.2 thou/uL (0.0-0.7); #Lymphocytes 1.1 thou/uL (1.20-3.40); #Monocytes 0.6 thou/uL (0.11-0.59); #Neutrophils 4.2 thou/uL (1.40-6.50); %Eosinophils 3.2 % (0.0-10.0); %Lymphocytes 18.2 % (21.0-51.0); %Monocytes 9.1 % (0.0-10.0); %Neutrophils 68.4 % (42.0-75.0); Hemoglobin 13.4 g/dL (14.0-18.0); Mean Corpuscular HGB CONC 33.3 g/dL (32.0-36.0); Mean Corpuscular Hemoglobin 31.8 pg (27.0-31.0); Mean Corpuscular Volume 95.4 fl (80.0-94.0); Mean Platelet Volume 5.7 fL (7.4-10.4); Platelet Count 210 thou/uL (130-400); RBC Distribution Width 13.1 % (11.5-14.5); White Blood Cell (WBC) Count 6.2 thou/uL (4.8-10.8)
--- NOTE | 2017-08-15 12:25 | RAD ---
CHEST ONE VIEW: HISTORY: Dyspnea. COMPARISON: Chest radiograph from 08/08/2017. FINDINGS: Heart size is enlarged. Layering left effusion. Left basilar opacity. No pneumothorax. IMPRESSION: Left layering effusion, as well as basilar opacity. There is a possibility that this may reflect vaughn e scar and elevation of the left hemidiaphragm, although infection cannot be totally excluded. POS: [facility]
[2017-08-15 12:26] LABS: ALT (SGPT) 50 U/L (8-55); AST (SGOT) 67 U/L (5-34); Albumin 3.5 g/dL (3.4-4.8); Alkaline Phosphatase 77 U/L (40-150); Anion Gap 14 mmol/L (10-20); BUN (Urea Nitrogen) 19 mg/dL (8.4-25.7); Bilirubin, Total 0.7 mg/dL (0.2-1.2); Calc. Creatinine Clearance 0 mL/min (70-130); Calcium 8.8 mg/dL (7.8-10.44); Carbon Dioxide 26 mmol/L (23-31); Chloride 105 mmol/L (98-107); Estimated GFR-MDRD Greater than 90; Globulin 2.9 g/dL (2.4-3.5); Glucose 108 mg/dL (83-110); Potassium 4.3 mmol/L (3.5-5.1); Protein, Total 6.4 g/dL (5.8-8.1); Sodium 141 mmol/L (136-145)
[2017-08-15 12:28] LABS: CKMB 3.4 ng/mL (0-6.6); Troponin I Less than 0.010 ng/mL (< 0.028)
[2017-08-15 13:53] LABS: Bilirubin Negative (Negative); Blood, Urine Negative (Negative); Clarity Cloudy (Clear); Glucose, Urine (Dipstick) Negative (Negative); Leukocyte Negative (Negative); Nitrite Negative (Negative); Protein, Urine (Dipstick) Negative (Neg-Trace); Specific Gravity, Urine 1.015 (1.005-1.030); Urobilinogen 0.2 mg/dL (0.2-1.0); pH, Urine 7.5 (5.0-9.0)
== END 2017-08-15 14:10 | disposition home or self-care (01) ==
LOC: SCSER 11:37
DX: R06.02 Shortness of breath (principal); R53.1 Weakness; M06.9 Rheumatoid arthritis, unspecified; G20 Parkinson's disease; Z79.899 Other long term (current) drug therapy
CPT/HCPCS: 71045; 80053; 81003; 82553; 83880; 84484; 85025; 93005; 96360